=== PATIENT | female | born 1970 | race Caucasian/White ===

== ENCOUNTER 2020-10-22 16:48 | Emergency (ER) | payer MEDICAID ==
[~2020-10-22] VITALS: Ht 162.6 cm; Wt 92.7 kg
[2020-10-22 17:46] LABS: BASOPHILS # (AUTO) 0.3 X10'3 (0-0.2); BASOPHILS % (AUTO) 1.4 % (0-1); EOSINOPHILS # (AUTO) 0.1 X10'3 (0-0.9); EOSINOPHILS % (AUTO) 0.5 % (0-6); HEMATOCRIT 36.9 % (35.0-45.0); HEMOGLOBIN 11.5 g/dl (12.0-16.0); LYMPHOCYTES % (AUTO) 4.8 % (21-51); MEAN CORPUSCULAR HEMOGLOBIN 26.2 PG (27.0-31.0); MEAN CORPUSCULAR HGB CONC 31.2 g/dL (33.0-36.5); MEAN CORPUSCULAR VOLUME 83.9 FL (78-98); MEAN PLATELET VOLUME 8.2 FL (7.4-10.4); MONOCYTES # (AUTO) 0.9 X10'3 (0-0.9); MONOCYTES % (AUTO) 4.4 % (2-12); NEUTROPHILS # (AUTO) 18.2 X10'3 (1.8-7.7); NEUTROPHILS % (AUTO) 88.9 % (42-75); PLATELET COUNT 457 X10'3 (140-440); RED CELL DISTRIBUTION WIDTH 16.7 % (11.5-14.5); WHITE BLOOD COUNT 20.4 X10'3 (4.5-11.0)
[2020-10-22 17:57] LABS: ALANINE AMINOTRANSFERASE 42 U/L (12-78); ALBUMIN 3.7 G/DL (3.4-5.0); ALBUMIN/GLOBULIN RATIO 0.9 (1.1-1.5); ALKALINE PHOSPHATASE 127 IU/L (46-116); ANION GAP 11 (8-16); BILIRUBIN,TOTAL 0.8 MG/DL (0.1-1.0); BLOOD UREA NITROGEN 7 MG/DL (7-18); BUN/CREATININE RATIO 8.8 (6.6-38.0); CALCIUM 9.3 MG/DL (8.5-10.1); CHLORIDE 103 MMOL/L (99-107); GLUCOSE 141 MG/DL (70-104); LIPASE 95 U/L (73-393); SODIUM 143 MMOL/L (135-145); TOTAL CARBON DIOXIDE 29.5 MMOL/L (24-32); TOTAL PROTEIN 7.9 G/DL (6.4-8.2); eGFR 76 ML/MIN
[2020-10-22 17:58] LABS: ASPARTATE AMINO TRANSFERASE 57 U/L (10-37); POTASSIUM 3.5 MMOL/L (3.5-5.1)
[2020-10-22] MEDS ORDERED: ondansetron/PF 4mg/2ml inj IV ONE (19:15)
[2020-10-22] MEDS ORDERED: iohexol 350MG/ML 100ml bottle IV ONE (19:17)
--- NOTE | 2020-10-22 19:39 | NUR ---
pt to [place]
--- NOTE | 2020-10-22 19:42 | NUR ---
BREAKING PRIMARY RN FOR BREAK; WILL CONT TO MONITOR
--- NOTE | 2020-10-22 19:44 | NUR ---
AT THIS TIME PT CANNOT PROVIDE URINE SAMPLE, WILL CHECK BACK
--- NOTE | 2020-10-22 20:11 | NUR ---
PT SITTING UP IN BED DRINKING WATER.
[2020-10-22] MEDS ORDERED: ONDA4TAB12 PO (20:33)
[2020-10-22] MEDS ORDERED: famotidine/PF 10 mg/ml inj IV ONE (20:35)
[2020-10-22 20:44] LABS: CLARITY,URINE SLIGHTLY CLOUDY (Clear); COLOR,URINE YELLOW (Yellow); GLUCOSE, URINE NEGATIVE (Neg); KETONES,URINE NEGATIVE (Neg); LEUKOCYTE ESTERASE ,URINE NEGATIVE (Neg); NITRITES, URINE NEGATIVE (Neg); OCCULT BLOOD,URINE MODERATE (Neg); PROTEIN,URINE 100 mg/dl (Neg); UROBILINOGEN,URINE 0.2 E.U/dL (0.2-1.0)
[2020-10-22 20:45] LABS: UA COLLECTION TYPE CLN CATCH MIDSTREAM
[2020-10-22 20:57] LABS: BACTERIA,URINE NONE SEEN /HPF (Neg); SQUAMOUS EPITHELIAL CELL,UR FEW /LPF (FEW); WBC,URINE 0-4 /HPF (0-4)
[2020-10-22 21:06] VITALS: BP 180/107
[2020-10-22 21:21] LABS: TOTAL CELLS COUNTED 100
[2020-10-22 21:22] LABS: LARGE PLATELETS FEW; PLATELET ESTIMATE INCREASED
[2020-10-22 21:23] LABS: ANISOCYTOSIS 1+; HYPOCHROMASIA 2+; POLYCHROMASIA FEW; TOXIC GRANULATION 1+; TOXIC VACUOLATION FEW
== END 2020-10-22 21:09 | disposition home or self-care (01) ==
LOC: ER 16:49
DX: R11.2 Nausea with vomiting, unspecified (principal); D72.829 Elevated white blood cell count, unspecified; R19.7 Diarrhea, unspecified; R10.84 Generalized abdominal pain; F17.200 Nicotine dependence, unspecified, uncomplicated; Z72.89 Other problems related to lifestyle; Z79.899 Other long term (current) drug therapy
CPT/HCPCS: 36415; 74177; 80053; 81001; 83690; 85007; 85025; 96374; 96375; 99285; J2405; J3490; Q9967

== ENCOUNTER 2022-10-28 11:22 | Emergency (ER) | payer MEDICAID ==
[~2022-10-28] VITALS: Ht 162.6 cm; Wt 89.5 kg
[~2022-10-28 11:22] MED LIST: ONDA4TAB12 PO
[2022-10-28] MEDS ORDERED: diphenhydrAMINE 50 mg/ml inj IV ONE (12:15)
[2022-10-28] MEDS ORDERED: methylPREDNISolone sod succ 125mg/2ml vial IV ONE (12:15)
[2022-10-28] MEDS ORDERED: famotidine/PF 10 mg/ml inj IV ONE (12:15)
[2022-10-28] MEDS ORDERED: CefTRIAXone 2gm/D5W 50ml BAG 50 ML IV ONE (12:15)
[2022-10-28] MEDS ORDERED: normal saline 1000ML IV soln IV ONE (12:15)
[2022-10-28 12:47] LABS: BASOPHILS # (AUTO) 0.1 X10'3 (0-0.2); BASOPHILS % (AUTO) 0.9 % (0-1); EOSINOPHILS # (AUTO) 0.1 X10'3 (0-0.9); EOSINOPHILS % (AUTO) 1.8 % (0-6); HEMATOCRIT 38.6 % (35.0-45.0); HEMOGLOBIN 12.5 g/dl (12.0-16.0); LYMPHOCYTES # (AUTO) 1.7 X10'3 (1.1-4.8); LYMPHOCYTES % (AUTO) 20.7 % (21-51); MEAN CORPUSCULAR HEMOGLOBIN 27.4 PG (27.0-31.0); MEAN CORPUSCULAR HGB CONC 32.4 g/dL (33.0-36.5); MEAN CORPUSCULAR VOLUME 84.7 FL (78-98); MEAN PLATELET VOLUME 7.8 FL (7.4-10.4); MONOCYTES # (AUTO) 0.7 X10'3 (0-0.9); MONOCYTES % (AUTO) 8.2 % (2-12); NEUTROPHILS # (AUTO) 5.7 X10'3 (1.8-7.7); NEUTROPHILS % (AUTO) 68.4 % (42-75); PLATELET COUNT 442 X10'3 (140-440); RED BLOOD COUNT 4.55 X10'6 (4.20-5.60); RED CELL DISTRIBUTION WIDTH 17.3 % (11.5-14.5); WHITE BLOOD COUNT 8.3 X10'3 (4.5-11.0)
[2022-10-28 13:53] LABS: ALANINE AMINOTRANSFERASE 18 U/L (12-78); ALBUMIN 3.8 G/DL (3.4-5.0); ALBUMIN/GLOBULIN RATIO 0.9 (1.1-1.5); ALKALINE PHOSPHATASE 119 IU/L (46-116); ANION GAP 8 (8-16); ASPARTATE AMINO TRANSFERASE 17 U/L (10-37); BILIRUBIN,TOTAL 0.6 MG/DL (0.1-1.0); BLOOD UREA NITROGEN 12 MG/DL (7-18); BUN/CREATININE RATIO 16.9 (10.0-20.0); CALCIUM 9.3 MG/DL (8.5-10.1); CHLORIDE 102 MMOL/L (99-107); CREATININE 0.71 MG/DL (0.40-0.90); GLUCOSE 107 MG/DL (70-104); POTASSIUM 3.8 MMOL/L (3.5-5.1); SODIUM 139 MMOL/L (135-145); TOTAL CARBON DIOXIDE 29.3 MMOL/L (24-32); eGFR 86 ML/MIN
[2022-10-28] MEDS ORDERED: iohexol 300mg/ml 100ml inj. ONE (13:58)
[2022-10-28] MEDS ORDERED: LIDO20SO16 PO (15:00)
[2022-10-28] MEDS ORDERED: CEPH250T PO (15:00)
[2022-10-28] MEDS ORDERED: PRED5TAB PO (15:00)
[2022-10-28 16:16] VITALS: BP 136/82
== END 2022-10-28 16:00 | disposition home or self-care (01) ==
LOC: ER 11:23
DX: J03.80 Acute tonsillitis due to other specified organisms (principal); B96.89 Other specified bacterial agents as the cause of diseases classified elsewhere; Z72.89 Other problems related to lifestyle; Z79.899 Other long term (current) drug therapy
CPT/HCPCS: 36415; 70491; 80053; 84145; 85025; 96365; 96375; 99285; J0696; J1200; J2930; J3490; J7030; Q9967